=== PATIENT | female | born 1975 | race African-American/Black ===

== ENCOUNTER 2019-04-04 09:33 | Emergency (ER) | payer OTHER ==
[~2019-04-04] VITALS: Ht 162.6 cm; Wt 80.3 kg
[~2019-04-04 09:33] MED LIST: [UNRECOGNIZED DRUG - REMARK]
[2019-04-04 09:37] VITALS: BP 135/76
--- NOTE | 2019-04-04 09:49 | NUR ---
PT AMBULATED TO ER BED 4
[2019-04-04] MEDS ORDERED: NACL 0.9% 500 ML IV ONE (09:56)
--- NOTE | 2019-04-04 09:56 | NUR ---
PT C/O RT FLANK PAIN RADIATING TO EPIGASTRIC REGION SINCE YESTERDAY. INCREASED W/ COUGHING, BREATHING, MOVING RT ARM. DENIES FEVER. NO N/V/D. DENIES TRAUMA. TOOK MOTRIN FOR PAIN YESTERDAY. SAW MD ON FRIDAY FOR COUGH. DR PRESCRIBED COUGH MED. PT SITTING ON BED, CALM. MEDHX: DENIES NKA
--- NOTE | 2019-04-04 09:56 | NUR ---
DR. NICOLAS BEDSIDE EVALUATING PT
[2019-04-04] MEDS ORDERED: KETOROLAC 30 MG/ML VIAL IVP ONE (10:00)
[2019-04-04 10:43] LABS: BASOPHILS # (AUTO) 0.1 K/uL (0.00-0.22); BASOPHILS % (AUTO) 0.7 % (0.0-2.0); EOSINOPHILS # (AUTO) 0.1 K/uL (0-0.4); EOSINOPHILS % (AUTO) 1.1 % (0.0-4.0); HEMATOCRIT 34.7 % (36-48); HEMOGLOBIN 11.2 g/dL (12.0-16.0); LYMPHOCYTES # (AUTO) 1.5 K/uL (2.5-16.5); LYMPHOCYTES % (AUTO) 15.6 % (20.5-51.1); MEAN CORPUSCULAR HEMOGLOBIN 21 pg (27-31); MEAN CORPUSCULAR HGB CONC 32 g/dL (33-37); MEAN CORPUSCULAR VOLUME 64.9 fL (80-94); MONOCYTES # (AUTO) 0.8 K/uL (0.8-1.0); MONOCYTES % (AUTO) 7.6 % (1.7-9.3); NEUTROPHILS # (AUTO) 7.4 K/uL (1.8-7.7); PLATELET COUNT (AUTO) 279 K/uL (140-450); RED BLOOD CELL COUNT(AUTO) 5.35 MIL/uL (4.20-5.40); RED CELL DISTRIBUTION WIDTH 16.8 % (11.6-13.7); WHITE BLOOD COUNT (AUTO) 9.9 K/uL (4.8-10.8)
[2019-04-04 11:16] LABS: ALBUMIN 3.6 g/dL (3.4-5.0); ANION GAP 15.4 (8-16); CARBON DIOXIDE 23.1 mmol/L (21-32); CREATININE 0.8 mg/dL (0.6-1.3); POTASSIUM 3.5 mmol/L (3.5-5.1); TOTAL BILIRUBIN 0.8 mg/dL (0.0-1.0)
[2019-04-04 11:21] LABS: APPEARANCE,URINE SL CLOUDY (CLEAR); BILIRUBIN,URINE NEGATIVE (NEGATIVE); BLOOD, URINE TRACE-I (NEGATIVE); COLOR,URINE YELLOW (YELLOW); LEUKOCYTE ESTERASE ,URINE 1+ (NEGATIVE); NITRITE, URINE NEGATIVE (NEGATIVE); UGLUCOSE NEGATIVE (NEGATIVE)
[2019-04-04 11:34] LABS: RBC,URINE 0-5 /HPF (0-5)
[2019-04-04 11:35] LABS: URINE AMORPHOUS URATE 1+ /HPF (None Seen)
[2019-04-04 11:55] VITALS: BP 135/76
--- NOTE | 2019-04-04 11:56 | NUR ---
Patient discharged with v/s stable. Written and verbal after care instructions given and explained. Patient alert, oriented and verbalized understanding of instructions. Ambulatory with steady gait. All questions addressed prior to discharge. ID band removed. Patient advised to follow up with PMD. Rx of MOTRIN AND TRAMADOL given. Patient educated on indication of medication including possible reaction and side effects. Opportunity to ask questions provided and answered.
== END 2019-04-04 11:56 | disposition home or self-care (01) ==
LOC: MED 09:33
DX: S39.012A Strain of muscle, fascia and tendon of lower back, initial encounter (principal); R10.9 Unspecified abdominal pain; R05 Cough; X58.XXXA Exposure to other specified factors, initial encounter; Y93.89 Activity, other specified; Y92.89 Other specified places as the place of occurrence of the external cause; Y99.8 Other external cause status
CPT/HCPCS: 36415; 71045; 76770; 80053; 81001; 81025; 83690; 85025; 87086; 96374; 99284; J1885; J7030; Q0092